=== PATIENT | female | born 1995 | race African-American/Black ===

== ENCOUNTER 2017-09-17 12:15 | Emergency (ER) | payer OTHER ==
[2017-09-17 12:48] LABS: URINE HCG POC HCG NEGATIVE (Negative)
[2017-09-17 13:07] LABS: BILIRUBIN,URINE SMALL (NEG); GLUCOSE,URINE NEGATIVE (NEG)
[2017-09-17 13:08] LABS: BACTERIA,URINE FEW /HPF (0-FEW); NITRITE,URINE NEGATIVE (NEG); PH,URINE 6.5; PROTEIN,URINE 30 mg/dL (NEG-TRACE); SQUAMOUS EPITHELIAL CELL,UR FEW /LPF
[2017-09-17] MEDS: AZITHROMYCIN 250 MG TABLET. PO (13:46)
[2017-09-17] MEDS: cefTRIAXone IM 250 MG VIAL IM (13:47)
[2017-09-19 10:20] LABS: CHLAMYDIA PROBE Negative (Negative)
== END 2017-09-17 14:04 | disposition home or self-care (01) ==
LOC: ER 12:15
DX: Z20.2 Contact with and (suspected) exposure to infections with a predominantly sexual mode of transmission (principal); N39.0 Urinary tract infection, site not specified; A59.01 Trichomonal vulvovaginitis; Z88.1 Allergy status to other antibiotic agents
CPT/HCPCS: 81001; 81025; 87086; 87186; 87491; 87591; 96372; 99284-25; J0696; Q0111; Q0144